=== PATIENT | female | born 1930 | race Caucasian/White ===

== ENCOUNTER → 2017-08-09 | Outpatient (CLI) | payer MEDICARE, BC ==
[~2017-08-09] MED LIST: ADVAIR HFA115 MCG/21 INH; APAP500 PO; ASPIR 8181 MG PO; ASPIRIN EC81 M1 PO; ASPIRIN325 PO; ATORVASTATIN CA20 MG PO; B-12500 MCG PO; BRILINTA90 MG PO; CARVEDILOL3.125 MG PO; CLORAZEPATE D3.75 M1 PO; COLACE100 MG PO; DIOVAN320 MG PO; FLONASE 0.05%50 MCG NASAL; FLONASE NS; HM COMPLETE MU1 EACH PO; HYDROCODONE-AP1 EAC6 PO; IMDUR 30 MG TAB30 M1 PO; IMDUR30 MG PO; LEVAQUIN 500 M500 M1 PO; LEVOTHROID PO; LEVOTHYROXIN0.075 MG PO; LIPITOR40 MG PO; MECLIZINE HCL25 MG PO; METAMUCIL PAC1 UDPKT PO; MILK OF MA2400 MG/10 PO; MONTELUKAST SOD10 MG PO; NORVASC 5 MG TAB5 MG PO; PREDNISONE 10 M10 MG PO; PRILOSEC 20 MG20 MG PO; PROZAC 20 MG20 M1 PO; PULMICORT0.5 MG/22 INH; SENOKOT-S1 TA1 PO; SPIRIVA; SPIRIVA INH; TRANXENE PO; TRANXENE T-TA3.75 MG PO; TRUSOPT5 ML OP; TUMS PO; ULTRAM 50MG TAB50 MG PO; VENTOLIN HFA 1818 GM INH; VITAMIN D3400 UNI1 PO; XARELTO10 MG PO; ZETIA10 MG PO; ZYRTEC PO
--- NOTE | 2017-08-09 15:02 | 2DMMODE ---
[place] [address] 2 D/M-MODE ECHOCARDIOGRAM Name: PÉREZ TURCIOS Palomo [id number] Admission: 08/09/17 Attend Phys: Susy Hubbard Discharge: Date of : 34 Date of Service: 08/09/17 1502 Report #: [id number] THIS REPORT FOR: //name// APPROVED REPORT Study performed: 08/09/2017 13:29:53 EXAM: Comprehensive 2D, Doppler, and color-flow Echocardiogram Patient Location: Out-Patient Status: routine BSA: 1.81 HR: 77 bpm BP: 171/82 mmHg Other Information Study Quality: Adequate Indications CAD Hypertension/HDD 2D Dimensions LVEF(%): 71.90 (>50%) IVSd: 10.97 (7-11mm) LVOT Diam: 20.36 (18-24mm) LVDd: 41.98 mm PWd: 9.66 (7-11mm) Ascending Ao: 29.71 (22-36mm) LVDs: 24.88 (25-40mm) Aortic Root: 26.06 mm Calderon's LVEF: 71.90 % Volumes Left Atrial Volume (Systole) LA ESV Index: 10.60 mL/m2 Aortic Valve AoV Peak Kings.: 1.08 m/s AO Peak Gr.: 4.63 mmHg LVOT Max P.39 mmHg AO Mean Gr.: 2.51 mmHg LVOT Mean P.20 mmHg LVOT Max V: 0.77 m/s AO V2 VTI: 25.03 cm LVOT Mean V: 0.51 m/s ASHLEY (VTI): 2.40 cm2 LVOT V1 VTI: 18.47 cm Mitral Valve E/A Ratio: 0.73 [place] [address] 2 D/M-MODE ECHOCARDIOGRAM Name: PÉREZ TURCIOS Room: [facility]#: [id number] Admission: 08/09/17 Attend Phys: Susy Hubbard Discharge: Date of : 34 Date of Service: 08/09/17 1502 Report #: [id number] MV Decel. Time: 238.27 ms MV E Max Kings.: 0.83 m/s MV PHT: 69.10 ms MVA (PHT): 3.18 cm2 TDI E/Lateral E': 10.38 E/Medial E': 10.38 Medial E' Kings.: 0.08 m/s Lateral E' Kings.: 0.08 m/s Pulmonary Valve PV Peak Kings.: 0.81 m/s PV Peak Gr.: 2.62 mmHg Left Ventricle The left ventricle is normal size. There is normal LV segmental wall motion. There is normal left ventricular wall thickness. Left ventricular systolic function is normal. The left ventricular ejection fraction is within the normal range. LVEF is 60%. Grade I - abnormal relaxation pattern. Right Ventricle The right ventricle is normal size. The right ventricular systolic function is normal. Atria The left atrium size is normal. The right atrium size is normal. Aortic Valve Mild aortic valve sclerosis. No aortic regurgitation is present. There is no aortic valvular stenosis. Mitral Valve There is mitral annular calcification. There is no mitral valve regurgitation noted. No evidence of mitral valve stenosis. Tricuspid Valve The tricuspid valve is normal in structure. There is no tricuspid valve regurgitation noted. Pulmonic Valve The pulmonary valve is normal in structure. Mild pulmonic regurgitation. Great Vessels The aortic root is normal in size. IVC is [place] [address] 2 D/M-MODE ECHOCARDIOGRAM Name: PÉREZ TURCIOS Room: [facility]#: [id number] Admission: 08/09/17 Attend Phys: Susy Hubbard Discharge: Date of : 34 Date of Service: 08/09/17 1502 Report #: [id number] collapses with >50% inspiration Pericardium There is no pericardial effusion. <Conclusion> The left ventricle is normal size. There is normal left ventricular wall thickness. Left ventricular systolic function is normal. The left ventricular ejection fraction is within the normal range. LVEF is 60%. Grade I - abnormal relaxation pattern. The right ventricle is normal size. The left atrium size is normal. Mild aortic valve sclerosis. No aortic regurgitation is present. There is no aortic valvular stenosis. There is mitral annular calcification. There is no mitral valve regurgitation noted. No evidence of mitral valve stenosis. The tricuspid valve is normal in structure. IVC is normal in size and collapses with >50% inspiration There is no pericardial effusion. There is normal LV segmental wall motion. <ELECTRONICALLY SIGNED> By: Avi Ulrich MD, FACC 08/09/17 1502 1502 1502 Avi Ulrich MD, FACC /INF
== END ==
LOC: M.CRD 13:00
DX: Z12.31 Encounter for screening mammogram for malignant neoplasm of breast (principal); I25.10 Atherosclerotic heart disease of native coronary artery without angina pectoris; I10 Essential (primary) hypertension; I51.9 Heart disease, unspecified; Z88.8 Allergy status to other drugs, medicaments and biological substances; Z88.5 Allergy status to narcotic agent

== ENCOUNTER → 2018-07-30 | Outpatient (CLI) | payer MEDICARE, BC ==
--- NOTE | 2018-07-30 17:19 | 2DMMODE ---
[place] [address] 2 D/M-MODE ECHOCARDIOGRAM Name: PÉREZ TURCIOS Palomo [facility] [id number] Admission: 07/30/18 Attend Phys: Susy Hubbard Discharge: Date of : 34 Date of Service: 07/30/18 1719 Report #: [id number] THIS REPORT FOR: //name// APPROVED REPORT Study performed: 07/30/2018 11:32:40 EXAM: Comprehensive 2D, Doppler, and color-flow Echocardiogram Patient Location: Out-Patient BSA: 1.83 HR: 63 bpm BP: 170/82 mmHg Other Information Study Quality: Fair Indications CAD Hypertension/HDD 2D Dimensions IVSd: 10.39 (7-11mm) LVOT Diam: 20.47 (18-24mm) LVDd: 40.98 mm PWd: 9.79 (7-11mm) Ascending Ao: 27.67 (22-36mm) LVDs: 18.49 (25-40mm) Aortic Root: 19.40 mm Volumes Left Atrial Volume (Systole) LA ESV Index: 17.40 mL/m2 Aortic Valve AoV Peak Kings.: 0.84 m/s AO Peak Gr.: 2.80 mmHg LVOT Max P.24 mmHg AO Mean Gr.: 1.75 mmHg LVOT Mean P.00 mmHg LVOT Max V: 0.75 m/s AO V2 VTI: 20.10 cm LVOT Mean V: 0.45 m/s ASHLEY (VTI): 3.21 cm2 LVOT V1 VTI: 19.63 cm Mitral Valve MV Peak Gr.: 5.51 mmHg MV Mean Gr.: 1.81 mmHg E/A Ratio: 0.82 MV Decel. Time: 281.78 ms MV E Max Kings.: 0.88 m/[place] [address] 2 D/M-MODE ECHOCARDIOGRAM Name: PÉREZ TURCIOS Room: [facility]#: [id number] Admission: 07/30/18 Attend Phys: Susy Hubbard Discharge: Date of : 34 Date of Service: 07/30/18 1719 Report #: [id number] MV PHT: 81.72 ms MVA (PHT): 2.69 cm2 TDI E/Lateral E': 12.57 E/Medial E': 12.57 Medial E' Kings.: 0.07 m/s Lateral E' Kings.: 0.07 m/s Pulmonary Valve PV Peak Kings.: 0.70 m/s PV Peak Gr.: 1.96 mmHg Left Ventricle The left ventricle is normal size. There is normal LV segmental wall motion. There is normal left ventricular wall thickness. Left ventricular systolic function is normal. The left ventricular ejection fraction is within the normal range. LVEF is 55-60%. Grade I - abnormal relaxation pattern. Right Ventricle The right ventricle is normal size. The right ventricular systolic function is normal. Atria The left atrium size is normal. The right atrium size is normal. Aortic Valve The aortic valve is normal in structure. No aortic regurgitation is present. There is no aortic valvular stenosis. Mitral Valve Moderate mitral annular calcification. Trace mitral regurgitation. No evidence of mitral valve stenosis. Tricuspid Valve The tricuspid valve is normal in structure. There is no tricuspid valve regurgitation noted. Pulmonic Valve The pulmonary valve is normal in structure. Mild pulmonic regurgitation. Great Vessels The aortic root is normal in size. IVC is normal in size and collapses >50% [place] [address] 2 D/M-MODE ECHOCARDIOGRAM Name: PÉREZ TURCIOS Room: [facility]#: [id number] Admission: 07/30/18 Attend Phys: Susy Hubbard Discharge: Date of : 34 Date of Service: 07/30/18 1719 Report #: [id number] Pericardium There is no pericardial effusion. <Conclusion> LVEF is 55-60%. <ELECTRONICALLY SIGNED> By: Clay Bloom MD, FAC 07/30/18 1719 18 18 Clay Bloom MD, [facility] /INF
== END ==
LOC: M.CRD 11:00
DX: I08.8 Other rheumatic multiple valve diseases (principal); I25.10 Atherosclerotic heart disease of native coronary artery without angina pectoris; I10 Essential (primary) hypertension

== ENCOUNTER 2019-03-26 15:14 | Inpatient (IN) | payer MEDICARE, BC ==
[~2019-03-26] VITALS: Ht 154.9 cm; Wt 86.2 kg
[~2019-03-26 15:14] MED LIST changes: +TRUSOPT OCUMETE10 ML PO; -TRUSOPT5 ML OP
[2019-03-26 15:16] VITALS: BP 179/110
[2019-03-26 16:11] LABS: CALCIUM 8.5 mg/dL (8.5-10.1); CREATININE 0.8 mg/dL (0.6-1.3)
[2019-03-26 16:13] LABS: ABSOLUTE BASOPHILS 0.1 thou/uL (0.0-0.2); ABSOLUTE EOSINOPHILS 0.1 thou/uL (0.0-0.7); ABSOLUTE MONOCYTES 0.8 thou/uL (0.0-1.2); BASOPHILS 0.9 %; EOSINOPHILS 1.1 %; HEMATOCRIT 35.1 % (37.0-47.0); MCH 30.8 pg (26.0-34.0); MCHC 34.2 g/dL (28.0-37.0); MCV 90.1 fL (80.0-100.0); MONOCYTES 9.7 %; NUCLEATED RBCS 0 /100WBC; PLATELET COUNT* 273 thou/uL (150-400); POLYS 63.3 %; RBC 3.89 mil/uL (4.20-5.00); RDW-CV 14.5 % (10.5-14.5); WBC 7.8 thou/uL (4.0-11.0)
[2019-03-26 16:22] LABS: ALBUMIN 3.4 g/dL (3.4-5.0); TOTAL BILIRUBIN 0.4 mg/dL (<0.1-1.0); TOTAL PROTEIN 6.4 g/dL (6.4-8.2)
[2019-03-26 16:24] LABS: APTT 23.8 Seconds (25.0-31.3); PROTIME 10.3 Seconds (9.20-11.50)
[2019-03-26 18:06] VITALS: BP 179/110
[2019-03-26 18:15] VITALS: BP 169/83
--- NOTE | 2019-03-26 19:01 | NUR ---
PATIENT ARRIVED THIS EVENING FROM ER PER CART. PATIENT IS ALERT AND ORIENTED X 4. SHE DENIES CHEST PAIN ON ARRIVAL. PATIENT PLACED ON TELE MONITOR. ORIENTED TO ROOM AND PROCEDURES. EDUCATED ON FALL PRECAUTIONS. TELE SHOWS SR WITH PVCS AND PACS. DINNER ORDERED. WILL REPORT TO ASBESTOS CEMENT SHEET SUPERVISOR.
[2019-03-26 20:00] VITALS: BP 177/72
[2019-03-26 20:19] LABS: URINE BILIRUBIN NEGATIVE (Negative); URINE BLOOD NEGATIVE (Negative); URINE CLARITY CLEAR; URINE COLOR YELLOW; URINE GLUCOSE-RANDOM NEGATIVE (Negative); URINE KETONES NEGATIVE (Negative); URINE LEUKOCYTES-REFLEX NEGATIVE (Negative); URINE NITRITE-REFLEX NEGATIVE (Negative); URINE PROTEIN NEGATIVE (Negative); URINE SPECIFIC GRAVITY <= 1.005 (1.005-1.030); URINE UROBILINOGEN 0.2 E.U./dl (0.2-1.0)
[2019-03-27] VITALS: BP 139/52
[2019-03-27 04:00] VITALS: BP 149/54
[2019-03-27 04:39] LABS: ABSOLUTE EOSINOPHILS 0.1 thou/uL (0.0-0.7); ABSOLUTE MONOCYTES 0.8 thou/uL (0.0-1.2); ABSOLUTE NEUTROPHILS 4.3 thou/uL (1.6-8.1); BASOPHILS 0.6 %; EOSINOPHILS 1.6 %; HEMATOCRIT 32.8 % (37.0-47.0); HEMOGLOBIN 11.2 gm/dL (12.0-15.0); LYMPHOCYTES 27.4 %; MCH 30.8 pg (26.0-34.0); MCHC 34.2 g/dL (28.0-37.0); MCV 90.2 fL (80.0-100.0); MONOCYTES 11.2 %; MPV 7.9 fl. (7.2-11.1); NUCLEATED RBCS 0 /100WBC; PLATELET COUNT* 241 thou/uL (150-400); POLYS 59.2 %; RBC 3.63 mil/uL (4.20-5.00); RDW-CV 14.1 % (10.5-14.5); WBC 7.2 thou/uL (4.0-11.0)
[2019-03-27 04:51] LABS: CALCIUM 8.2 mg/dL (8.5-10.1); CREATININE 0.8 mg/dL (0.6-1.3); MAGNESIUM 2.1 mg/dL (1.8-2.4); POTASSIUM 3.9 mmol/L (3.5-5.1)
--- NOTE | 2019-03-27 04:53 | NUR ---
PT HAS RESTED T/O NIGHT WITHOUT C/O CP. 2L NC DURING SLEEP. PT PROGRESSING TOWARDS GOALS. CALL LIGHT IN REACH
[2019-03-27 04:54] LABS: CHOLESTEROL 114 mg/dL (<200); HDL CHOLESTEROL 31 mg/dL (>40); LDL CHOLESTEROL 60 mg/dL (<100); SERUM ASSESSMENT Clear; TC:HDL 3.7 Ratio (Not establshd); TRIGLYCERIDE 116 mg/dL (<150); VLDL 23 mg/dL (<40)
[2019-03-27 08:00] VITALS: BP 168/67
[2019-03-27 12:00] VITALS: BP 119/56
--- NOTE | 2019-03-27 14:36 | NUR ---
Pt is A&O, Pt states she's tired, spoke with dtr at bedside. Pt resides with dtr. Independent, they share IADLs and have a cleaning lady that comes once/month. Pt uses a walker for mobility. Pt wears home o2 at [facility], dtr does not know name of agency that supplied o2. Hx of HH. Hx of SNF at [place]. [place], no needs anticipated. Cardiology to see Pt.
[2019-03-27 16:00] VITALS: BP 137/63
--- NOTE | 2019-03-27 16:54 | EKG ---
[place] [address] ELECTROCARDIOGRAM REPORT Name: PÉREZ TURCIOS Room: [address] M.R.#: [id number] Admission: 03/26/19 Attend Phys: Clint Willoughby MD Discharge: Date of : 34 Report #: [id number] THIS REPORT FOR: //name// [facility] ED Test Date: 2019-03-26 Test Time: 15:39:19 Pat Name: PÉREZ TURCIOS Department: Room: [facility] Gender: F Side Splitter: : 1930 Requested By: Rebekah Boston Order Number: [id number] MD: Murali Angelo Measurements Intervals [place] Rate: 73 P: 54 SC: 184 QRS: -2 QRSD: 80 T: 16 QT: 388 QTc: 428 Interpretive Statements Sinus rhythm Low voltage, precordial leads Compared to ECG 01/28/2017 07:45:06 No significant changes Electronically Signed On 03-27-2019 16:54:02 CREATIVE STRATEGIST by Murali Angelo [email or web address] <ELECTRONICALLY SIGNED> By: Murali Angelo MD, FACC 03/27/19 1654 1539 1539 Murali Angelo MD, [facility] /EPI
[2019-03-27 20:00] VITALS: BP 138/55
--- NOTE | 2019-03-27 20:22 | NUR ---
PT VSS, PATIENT SR WITH PVCS ON TELE, PATIENT ALUTIIQ, A&OX4, UP WITH ONE AND HER WALKER. NPO AT MIDNIGHT HEART CATH SCHEDULED 12/05-AM. HOURLY ROUNDING PERFORMED, POSSESSIONS AND CALL LIGHT WITHIN REACH. PT REPORTS PAIN IN LOWER BACK- REPORTS CHRONIC AND MEDS REALLY DONT HELP THE PAIN.
[2019-03-27 23:07] LABS: GLYCOHEMOGLOBIN (HGB A1C) 6.1 % (4.8-5.6)
[2019-03-28] VITALS (18 sets, daily range): BP systolic 100–160; BP diastolic 46–79
--- NOTE | 2019-03-28 05:32 | NUR ---
PT HAS RESTED COMFORTABLY T/O NIGHT ON 2L NC. SR ON MONITOR. PT PROGRESSING TOWARDS GOALS. PT NPO FOR CATH IN AM .CALL LIGHT IN REACH
[2019-03-28] MEDS ORDERED: LEVOTHYROXINE88 MCG PO (11:43)
[2019-03-28] MEDS ORDERED: PEPCID20 MG PO (11:43)
--- NOTE | 2019-03-28 17:58 | CARD ---
[address] [address] CARDIAC CATH REPORT Name: PÉREZ TURCIOS Room: [address] [facility]#: [id number] Admission: 03/27/19 Attend Phys: Clint Willoughby MD Discharge: Date of : 34 Report #: [id number] THIS REPORT FOR: //name// APPROVED REPORT Study performed: 03/28/2019 12:36:26 Patient Details Patient Status: In-Patient Room #: The patient is a 88 year-old female Event Personnel Murali Angelo Project Geophysicist,Anneliese Devries RN, Jolly Martin Becki RTR, Sissy Cerda RTR Monitor Procedures Performed Art Access - L femoral artery Left Heart Cath w/or w/o Coronaries Hemostasis w/ Mynx Procedure Narrative The patient was brought electively to the Cardiac Catheterization Laboratory and was prepped and draped in a sterile manner. A 6fr Ultimum Sheath sheath was inserted into the left femoral artery. Coronary angiography was performed using coronary diagnostic catheters. The right coronary system was accessed and visualized with a Diagnostic JR 4 6Fr catheter. The left coronary system was accessed and visualized with a Diagnostic JL 4 6Fr catheter. The left ventricle was accessed and visualized with a Diagnostic Pig 6Fr catheter. Left ventricular/Aortic Valve gradient assessed via catheter pullback. Closure device was deployed with a Fr Mynx. The patient tolerated the procedure well and there were no complications associated with the procedure. There was no hematoma. Intraoperative Conscious Sedation Sedation start time: 13:36 Case end Time: 13:57 Fluoro Time: 1.8 minutes Dose: DAP 19624 cGycm2 575 mGy Contrast Type and Amount: Visipaque 80 ml Coronary Angiography The patient's coronary anatomy is right [place] [address] CARDIAC CATH REPORT Name: PÉREZ TURCIOS Palomo Room: [address] [place] [facility]#: [id number] Admission: 03/27/19 Attend Phys: Clint Willoughby MD Discharge: Date of : 34 Report #: [id number] Left Main Normal. LAD Widely patent stents in the proximal LAD. The mid and distal vessel are free of significant disease. Diagonal 1 Normal. Diagonal 2 Normal. Circumflex Widely patent stent in the proximal circumflex extending into the first obtuse marginal branch. The mid and distal circumflex are small in caliber and normal. OM1 Widely patent stents extending from the circumflex into the ostium of the first obtuse marginal branch. The rest of the large branched vessel is free of significant disease. OM2 Normal. Right Coronary 10% plaque proximally. 30% plaque distally. R PDA 20% narrowing in the mid vessel. RPLV Normal. Left Ventriculography Left Ventriculography was not performed. Hemodynamics The aortic pressure is 170/64 mmHg with a mean of 80 mmHg. The left ventricular pressure is 171/-1 mmHg with a mean of mmHg. The left ventricular end diastolic pressure is 18 mmHg. Conclusion 1. Widely patent stents in the proximal left anterior descending coronary artery and proximal circumflex into the first obtuse marginal branch. 2. No other hemodynamically significant disease noted. 3. Minimally elevated left ventricular end-diastolic pressure. Recommendations 1. Continue aggressive risk factor modification and medical management. <ELECTRONICALLY SIGNED> By: Murali Angelo MD, FACC 03/28/191756 56 56Micdanay Angelo MD, FACC /INF
--- NOTE | 2019-03-28 19:50 | NUR ---
PT VSS, PT NPO, A&OX4, SR W/PVCS ON TELE, SBA WITH WALKER, HEART CATH TODAY, POST CATH LEFT GROIN DRESSING CLEAN DRY INTACT, BERMAN PLACED AND REMOVED POST PROCEDURE. HOURLY ROUNDING PERFORMED, POSSESSIONS AND CALL LIGHT WITHIN REACH
[2019-03-29] VITALS (8 sets, daily range): BP systolic 127–153; BP diastolic 55–69
[2019-03-29 05:34] LABS: CALCIUM 8.5 mg/dL (8.5-10.1); CREATININE 0.8 mg/dL (0.6-1.3); POTASSIUM 3.6 mmol/L (3.5-5.1)
--- NOTE | 2019-03-29 12:25 | NUR ---
ASSUMED PT CARE REPORT RECEIVED FROM NURSE PT IS AOX4 ON RA. VSS. LEFT GROIN SITE INTACT. TRANSPARENT DRESSING IS DRY. TRACING SR ON RECORDAK OPERATOR. DISCHARGE ORDERED. DISCAHRGE INSTRUCATION GIVEN. NURSE ANSWER QUESTIONS. F/U APPNT WITH CARDIO IN 3 MONTHS. PT LEFT FLOOR AT 1115 AM. ACCOMPANIED BY NURSE STAFF AND DAUGHTER ON WHEELCHAIR.
== END 2019-03-29 11:15 | disposition home or self-care (01) | DRG 287 ==
LOC: M.ERS 15:14 → M.2W 16:17 → M.TBA-ER 16:17 → M.2W 18:01
PROVIDERS: Internal Medicine Cardiovascular Disease; Physician Assistant; ADMIT Family Medicine
PROC: B211YZZ Fluoroscopy of Multiple Coronary Arteries using Other Contrast (ICD-10-PCS; principal; 2019-03-28)
PROC: B215YZZ Fluoroscopy of Left Heart using Other Contrast (ICD-10-PCS; principal; 2019-03-28)
PROC: 4A023N7 Measurement of Cardiac Sampling and Pressure, Left Heart, Percutaneous Approach (ICD-10-PCS; principal; 2019-03-28)
DX: I25.119 Atherosclerotic heart disease of native coronary artery with unspecified angina pectoris (principal); Z96.1 Presence of intraocular lens; I10 Essential (primary) hypertension; M19.90 Unspecified osteoarthritis, unspecified site; K21.9 Gastro-esophageal reflux disease without esophagitis; E03.9 Hypothyroidism, unspecified; K44.9 Diaphragmatic hernia without obstruction or gangrene; E66.9 Obesity, unspecified; Z98.1 Arthrodesis status; Z90.710 Acquired absence of both cervix and uterus; Z87.442 Personal history of urinary calculi; Z95.5 Presence of coronary angioplasty implant and graft; Z98.42 Cataract extraction status, left eye; Z98.41 Cataract extraction status, right eye; Z79.899 Other long term (current) drug therapy; Z79.82 Long term (current) use of aspirin; Z88.8 Allergy status to other drugs, medicaments and biological substances; Z88.6 Allergy status to analgesic agent; Z82.49 Family history of ischemic heart disease and other diseases of the circulatory system; Z68.35 Body mass index [BMI] 35.0-35.9, adult

== ENCOUNTER 2019-12-11 16:29 | Emergency (ER) | payer MEDICARE, BC ==
[~2019-12-11] VITALS: Ht 152.4 cm; Wt 86.6 kg
[~2019-12-11 16:29] MED LIST changes: +LEVOTHYROXINE88 MCG PO; +PEPCID20 MG PO
[2019-12-11] MEDS ORDERED: ALLEGRA ALLERG180 MG PO (16:49)
[2019-12-11] MEDS ORDERED: VITAMIN D21250 MC1 PO (16:49)
[2019-12-11] MEDS ORDERED: OMEPRAZOLE40 MG PO (16:49)
[2019-12-11] MEDS ORDERED: VITAMIN D31250 MC1 PO (16:50)
[2019-12-11] MEDS ORDERED: GLUCOSAMINE1000 MG PO (16:50)
[2019-12-11] MEDS ORDERED: SENNA8.6 MG PO (16:50)
[2019-12-11] MEDS ORDERED: ONE-DAILY MULT1 EAC1 PO (16:51)
[2019-12-11] MEDS ORDERED: AMOXICILLIN 50500 MG PO ×2 (16:54→17:16)
[2019-12-11 17:33] VITALS: BP 169/80
== END 2019-12-11 17:34 | disposition home or self-care (01) ==
LOC: M.ERS 16:29
DX: J01.90 Acute sinusitis, unspecified (principal); I10 Essential (primary) hypertension; E03.9 Hypothyroidism, unspecified; M19.90 Unspecified osteoarthritis, unspecified site; Z95.5 Presence of coronary angioplasty implant and graft; Z90.710 Acquired absence of both cervix and uterus; Z87.442 Personal history of urinary calculi; Z98.51 Tubal ligation status; Z88.1 Allergy status to other antibiotic agents; Z88.6 Allergy status to analgesic agent; Z88.8 Allergy status to other drugs, medicaments and biological substances